=== PATIENT | female | born 1970 | race Caucasian/White ===

== ENCOUNTER 2017-04-11 11:32 | Emergency (ER) | payer BC, SELFPAY ==
[2017-04-11 11:56] VITALS: BP 146/92; PULSE 110; RESP 18; TEMP 36.8; O2SAT 97; BMI 28.1
--- NOTE | 2017-04-11 12:13 | HMH.EDUTC ---
[facility] [place] Clinical Impression: Viral pharyngitis Disposition: Home, Self-Care Condition on Discharge: Good Instructions: DI for Viral Pharyngitis Prescriptions: methylPREDNISolone [Medrol] 4 mg PO DAILY 6 Days #21 tab.ds.pk Pseudoephedrine HCl [Sudafed 12-Hour] 120 mg PO BID PRN #20 tablet.er PRN Reason: Congestion Referrals: Nirmal Walker MD [Primary Care Provider] - Medical Decision Making - Medical Records Medical records reviewed: Yes: I reviewed the patient's medical records. Vital Signs: 04/11/17 11:56 Temperature 98.2 F Temperature Source Temporal Artery Scan Pulse Rate [Right Brachial] 110 H Respiratory Rate 18 Blood Pressure [Right Arm] 146/92 Blood Pressure Mean [Right Arm] 110 Blood Pressure Source [Right Arm] Automatic Cuff Blood Pressure Position [Right Arm] Supine 02 Sat by Pulse Oximetry 97 Oxygen Delivery Method Room Air - Lab Data Lab results reviewed: Yes: I reviewed the patient's lab results. - Lorenzo Inquiry Pt receiving controlled substance: No [facility] [place] - General Stated complaint: SORE THROAT Time Seen by Provider: 04/11/17 11:50 Mode of Arrival: Ambulatory Source of Information: Patient Limitations: No Limitations Description of Symptoms (Recalled from Triage Doc. by RN): ESPINOZA, SORE THROAT, FEVER, CHILLS HEENT Symptoms (Recalled from RN notes): Yes (ESPINOZA, SORE THROAT) Resp Symptoms (Recalled from RN notes): No Skin Symptoms (Recalled from RN notes): No MS Symptoms (Recalled from RN notes): No Functional Status (Recalled from RN notes): N/A - History of Present Illness Provider Complaint: Sore throat, runny nose, malaise X 2 days. No fever. No vomiting or diarrhea. Onset (ago): day(s) (2) Location: head, face Relieving factors: none Exacerbating factors: none Associated symptoms: denies other symptoms Treatments prior to arrival: none - Related Data Previous Rx's Medication Instructions Recorded Pseudoephedrine HCl [Sudafed 120 mg PO BID PRN #20 tablet.er 04/11/17 12-Hour] methylPREDNISolone [Medrol] 4 mg PO DAILY 6 Days #21 tab.ds.pk 04/11/17 Allergies Allergy/AdvReac Type Severity Reaction Status Date / Time No Known Allergies Allergy Verified 04/11/17 12:00 - Worker's Comp Is this a Worker's Comp case?: No H History I have reviewed the patient's past medical history: Yes Medical History: Denies:: Cancer, Diabetes Mellitus Type 1, Diabetes Mellitus Type 2, MRSA Amputation: No Fractures: No - Social History Smoking Status: Never smoker Alcohol Intake: never - Psychiatric History Expresses thoughts of harming self/others: None Suicide Plan Description: No Plan ROS Obtained: Yes All systems reviewed & no additional complaints - ENT Ears, Nose, Mouth, and Throat: Reports nasal discharge, Denies sinus pressure, Reports sore throat Physical Exam - General General appearance: alert, in no apparent distress - Head Head exam: atraumatic, normocephalic, normal inspection - Eye Eye exam: Present: normal appearance, PERRL, EOMI - ENT ENT exam: Present: normal exam, normal oropharynx, mucous membranes moist, TM's normal bilaterally, normal external ear exam - Neck Neck exam: Present: normal inspection, full ROM, trachea midline. Absent: meningismus, lymphadenopathy - Chest Chest inspection: Present: normal inspection, symmetric chest wall rise. Absent: tenderness - Respiratory Respiratory exam: Present: normal lung sounds bilaterally. Absent: respiratory distress - Cardiovascular Cardiovascular exam: Present: regular rate, normal rhythm. Absent: JVD - Abdominal Exam Abdominal exam: Present: soft, normal bowel sounds. Absent: distention, tenderness, guarding - Extremities Exam Extremities exam: Present: normal inspection, full ROM, normal capillary refill. Absent: calf tenderness - Back Exam Back exam: Present: normal inspection. Absent: tenderness - Neurological Exam Neurological exam: Present
--- NOTE | 2017-04-11 12:16 | ED_ITS ---
[facility] [place] Impression: Viral ph[place]itis Disposition: Home, Self-Care Condition on Discharge: Good Instructions: DI for Viral Pharyngitis Prescriptions: methylPREDNISolone [Medrol] 4 mg PO DAILY 6 Days #21 tab.ds.pk Pseudoephedrine HCl [Sudafed 12-Hour] 120 mg PO BID PRN #20 tablet.er PRN Reason: Congestion Referrals: Nirmal Walker MD [Primary Care Provider] - Medical Decision Making - Medical Records Medical records reviewed: Yes: I reviewed the patient's medical records. Vital Signs: 04/11/17 11:56 Temperature 98.2 F Temperature Source Temporal Artery Scan Pulse Rate [Right Brachial] 110 H Respiratory Rate 18 Blood Pressure [Right Arm] 146/92 Blood Pressure Mean [Right Arm] 110 Blood Pressure Source [Right Arm] Automatic Cuff Blood Pressure Position [Right Arm] Supine 02 Sat by Pulse Oximetry 97 Oxygen Delivery Method Room Air - Lab Data Lab results reviewed: Yes: I reviewed the patient's lab results. - Lorenzo Inquiry Pt receiving controlled substance: No [facility] [place] - General Stated complaint: SORE THROAT Time Seen by Provider: 04/11/17 11:50 Mode of Arrival: Ambulatory Source of Information: Patient Limitations: No Limitations Description of Symptoms (Recalled from Triage Doc. by RN): ESPINOZA, SORE THROAT, FEVER, CHILLS HEENT Symptoms (Recalled from RN notes): Yes (ESPINOZA, SORE THROAT) Resp Symptoms (Recalled from RN notes): No Skin Symptoms (Recalled from RN notes): No MS Symptoms (Recalled from RN notes): No Functional Status (Recalled from RN notes): N/A - History of Present Illness Provider Complaint: Sore throat, runny nose, malaise X 2 days. No fever. No vomiting or diarrhea. Onset (ago): day(s) (2) Location: head, face Relieving factors: none Exacerbating factors: none Associated symptoms: denies other symptoms Treatments prior to arrival: none - Related Data Previous Rx's Medication Instructions Recorded Pseudoephedrine HCl [Sudafed 120 mg PO BID PRN #20 tablet.er 04/11/17 12-Hour] methylPREDNISolone [Medrol] 4 mg PO DAILY 6 Days #21 tab.ds.pk 04/11/17 Allergies Allergy/AdvReac Type Severity Reaction Status Date / Time No Known Allergies Allergy Verified 04/11/17 12:00 - Worker's Comp Is this a Worker's Comp case?: No [facility] History I have reviewed the patient's past medical history: Yes Medical History: Denies:: Cancer, Diabetes Mellitus Type 1, Diabetes Mellitus Type 2, MRSA Amputation: No Fractures: No - Social History Smoking Status: Never smoker Alcohol Intake: never - Psychiatric History Expresses thoughts of harming self/others: None Suicide Plan Description: No Plan ROS Obtained: Yes All systems reviewed & no additional complaints - ENT Ears, Nose, Mouth, and Throat: Reports nasal discharge, Denies sinus pressure, Reports sore throat Physical Exam - General General appearance: alert, in no apparent distress - Head Head exam: atraumatic, normocephalic, normal inspection - Eye Eye exam: Present: normal appearance, PERRL, EOMI - ENT ENT exam: Present: normal exam, normal oropharynx, mucous membranes moist, TM's normal bilaterally, normal external ear exam - Neck Neck exam: Present: normal inspection, full ROM, trachea midline. Absent: meningismus, lymphadenopathy
[2017-04-11 12:18] VITALS: BP 146/92; PULSE 110; RESP 18; TEMP 36.8; O2SAT 97
[2017-04-11 20:59] LABS: UTC Strep Screen (Rapid) Negative (Negative)
== END 2017-04-11 12:19 | disposition home or self-care (01) ==
PROVIDERS: Emergency Provider Physician Assistant; PCP Internal Medicine Adolescent Medicine
DX: J02.9 Acute pharyngitis, unspecified (principal)
CPT/HCPCS: 87880; 99202

== ENCOUNTER → 2019-09-18 10:13 | Outpatient (CLI) | payer BC, SELFPAY ==
[2019-09-18 15:13] LABS: Basophils # 0.1 K/mm3 (0-0.2); Basophils % 1.3 % (0.1-2.0); Eosinophils # 0.3 K/mm3 (0.0-0.4); Hematocrit 40.5 % (37.0-47.0); Hemoglobin 13.5 g/dL (12.2-16.2); Lymphocytes # 1.7 K/mm3 (0.7-4.5); Lymphocytes % 23.6 % (10-50); Mean Corpuscular HGB Conc 33.3 g/dL (31.8-35.4); Mean Corpuscular Volume 90.1 fl (81-99); Monocytes # 0.4 K/mm3 (0.1-1.0); Neutrophils # 4.6 K/mm3 (1.8-7.8); Neutrophils % 65.1 % (37.0-80.0); Platelet Count 285 K/mm3 (142-424); Red Cell Distribution Width 13.1 % (11.5-17.5)
== END ==
PROVIDERS: Visit Provider Nurse Practitioner
DX: L90.0 Lichen sclerosus et atrophicus (principal)
CPT/HCPCS: 36415; 85025

== ENCOUNTER → 2021-12-18 11:45 | Outpatient (CLI) | payer BC, SELFPAY ==
[2021-12-18 18:39] LABS: Erythrocyte Sedimentation Rate 13 mm/hr (0-30)
[2021-12-20 09:12] LABS: RA Latex Turbid. <10.0 IU/mL (<14.0)
[2022-01-17 22:50] LABS: Antinuclear Antibodies (ANA) Negative
== END ==
PROVIDERS: PCP Family Medicine; Visit Provider Family Medicine
DX: M79.641 Pain in right hand (principal); M79.642 Pain in left hand
CPT/HCPCS: 85651; 86038; 86431

== ENCOUNTER → 2022-01-12 08:07 | Outpatient (CLI) | payer BC, SELFPAY ==
--- NOTE | 2022-01-12 08:18 | XR_ITS ---
FINAL REPORT CLINICAL HISTORY: left thumb pain FINDINGS: LEFT HAND Three views of the left hand were obtained. Degenerative changes are noted of the 1st carpometacarpal joint. There is no acute fracture or dislocation. Visualized joint spaces are normally aligned. Soft tissues are unremarkable. IMPRESSION: No acute bony abnormality. Reviewed, Interpreted and Dictated by Dwain Lara MD Transcribed by Sarah Day Authenticated and [facility]
== END ==
PROVIDERS: PCP Family Medicine; Visit Provider Family Medicine
DX: M79.642 Pain in left hand (principal)
CPT/HCPCS: 73120